=== PATIENT | male | born 1980 | race Caucasian/White ===

== ENCOUNTER 2020-09-28 06:58 | Emergency (ER) | payer SELFPAY ==
[2020-09-28] VITALS (8 sets, daily range): BP systolic 108–135; BP diastolic 54–89; PULSE 18–78; RESP 14–20; TEMP 36.3–36.5; O2SAT 96–100; BMI 22.0
--- NOTE | 2020-09-28 07:19 | ED_ITS ---
HPI - Male Genitourinary General: Chief complaint: Urogenital-Male Stated complaint: Back Pain on Right side Time Seen by Provider: 09/28/20 06:59 History of Present Illness: HPI Narrative: Patient is a 39-year-old male comes to the ED with right flank pain. Patient has a past medical history of kidney stones and BPH. Approximately 2-3 nights ago patient says he urinated and it was dark Coke color. Since dark-colored urine he has not had an episode of urine a dark but has had medium strontium darker straw urination since. He had some sharp right flank pain yesterday but it was brief and went away. At 4:30 this morning he developed some sharp right flank pain that has continued and he has decreased urine output today and he is only able to urinate a small amount out. he currently rates his pain an 8-9 out of 10. Associated symptoms: Reports hematuria; Deny dysuria, nausea or vomiting Review of Systems Const: Denies: fever(s), chills or fatigue Eyes: Denies: change in vision or eye discomfort ENMT: Denies: throat pain, odynophagia, nasal discharge or nasal congestion Card: Denies: chest pain, palpitations, edema, swelling of feet/ankles, dyspnea on exertion or orthopnea Resp: Denies: dyspnea, productive cough or non-productive cough GI: Denies: abdominal pain, nausea, vomiting, diarrhea, constipation or hematochezia : Reports: flank pain, difficulty urinating, oliguria and hematuria; Denies: dysuria Musc: Denies: neck pain, back pain or extremity swelling Skin/Breast: Denies: rash or new lesions Neuro: Denies: headache(s), numbness in extremities or weakness in extremities Physical Exam Const: COMMON NORMALS: patient oriented x3 and alert GENERAL APPEARANCE: cooperative and in distress (Patient is constantly moving around and uncomfortable due to pain during ex) HENMT: COMMON NORMALS: normocephalic HEAD & SCALP: normocephalic MOUTH: Normal oral and palatal mucosa present THROAT: posterior oropharynx normal and uvula midline Neck/C-Spine: COMMON NORMALS: supple GENERAL: Yes normal visual inspection Resp: COMMON NORMALS: normal respiratory effort, No retractions, No use of accessory muscles and clear to auscultation bilaterally AUSCULTATION: clear to auscultation bilaterally Cardio: COMMON NORMALS: regular rate, regular rhythm, S1 normal heart sound present, S2 normal heart sound present, No gallops present (Cardio), No clicks present (Cardio), No murmurs present (Cardio) and Peripheral pulses 2+ throughou t RATE: regular rate RHYTHM: regular rhythm HEART SOUNDS: S1 normal heart sound present and S2 normal heart sound present PERIPHERAL PULSES: Peripheral pulses 2+ throughout GI: COMMON NORMALS: Normal to inspection, nondistended, normoactive bowel sounds present, Soft to palpation and no masses PALPATION: Yes Soft to palpation and Yes Tenderness to palpation present (GI) Details: other (Right flank pain) : BLADDER/KIDNEY EXAM: Yes CVA tenderness on the right Extremity: COMMON NORMALS: normal to inspection Neuro: COMMON NORMALS: patient oriented x3 and moves all extremities SENSORIUM/ORIENTATION: Yes alert Skin: GENERAL SKIN EXAM: dry skin Course Reevaluation(s): Reevaluation #1: After patient was given IV Toradol he says his pain completely went away. Vital Signs: Vital signs: Vital Signs Temperature 97.6 F 09/28/20 09:27 Pulse Rate 18 L 09/28/20 09:27 Respiratory Rate 16 09/28/20 09:00 Blood Pressure 108/77 09/28/20 09:27 Pulse Oximetry 96 09/28/20 09:27 MDM - Male MDM Narrative: Medical decision making narrative: Patient is a 39-year-old male that comes to the ED with right flank pain. He has CVA tenderness upon exam. White blood cell count 17.5 progressive CBC and CMP was unremarkable. Urinalysis showed hematuria but no other signs of infection in the urine seen. CT kidney stone showed an approximately 3 mm obstructive stone in the UVJ. Patient was given IV Toradol, fluids and tamsulosin while here in the ED. He was sent home with a urine strainer and told to continue strain urine to catch stone. He was sent home with a prescription for tamsulosin and naproxen. I placed an order with case management for patient be referred to Dr. Wilde and I told him they will be contacting him in the next couple days to set up an appointment. Return to ED precautions given. Patient understood and agree with plan. Lab Data: Attestation: I reviewed the patient's lab results. Labs: Lab Results 09/28/20 09/28/20 09/28/20 Range/Units 07:25 07:25 08:35 WBC 17.5 H (4.0-10.0) 10^3/ uL RBC 5.24 (4.1-5.3) 10^6/u L Hgb 16.1 (11.7-16.6) g/dL Hct 48.1 (42.0-52.0) % MCV 91.8 (80-94) fL MCH 30.7 (28.0-34.0) pg MCHC 33.5 (30.0-36.0) g/dL RDW 12.2 (12.1-15.1) % Plt Count 263 (130-400) 10^3/c mm MPV 11.4 H (7.4-10.4) fL Neut % (Auto) 80.6 % Lymph % (Auto) 10.8 % Eaton % (Auto) 7.1 % Eos % (Auto) 0.6 % Baso % (Auto) 0.4 % Neut # (Auto) 14.15 H (1.8-7.7) 10^3/u L Lymph # (Auto) 1.9 (0.8-4.8) 10^3/u L Eaton # (Auto) 1.2 H (0.2-0.9) 10^3/u L Eos # (Auto) 0.1 (0.0-0.8) 10^3/u L Baso # (Auto) 0.1 (0.0-0.1) 10^3/u L Nucleated RBC % (a uto) 0 % Nucleated RBCs # 0.0 /100WBC Sodium 137 (136-145) mmol/L Potassium 4.1 (3.5-5.1) mmol/L Chloride 101 (98-107) mmol/L Carbon Dioxide 23 (22-29) mmol/L Anion Gap 17.1 (5-19) BUN 15 (6-20) mg/dL Creatinine 1.1 (0.7-1.2) mg/dL GFR Calculation 75.3 L (90-130) mL/min Glucose 123 H (65-115) mg/dL Calculated Osmolal ity 286 (285-295) mOsm/k g Calcium 9.6 (8.5-10.5) mg/dL Total Bilirubin 0.2 (0.15-1.2) mg/dL AST 108 H (0-40) U/L ALT 179 H (0-41) U/L Alkaline Phosphata se 118 (40-130) IU/L Total Protein 6.9 (6.6-8.7) g/dL Albumin 4.7 (3.5-5.2) g/dL Globulin 2.2 (1.3-4.6) g/dL Urine Color Yellow (Yellow) Urine Appearance Clear (CLEAR) Urine pH 5 (5-7) Ur Specific Gravit y 1.015 (1.005-1.030) Urine Protein Neg (Negative) Urine Glucose (UA) Norm (Normal) Urine Ketones Negative (Negative) Urine Blood 3+ H (Negative) Urine Nitrate Negative (Negative) Urine Bilirubin Neg (Negative) Urine Urobilinogen Norm (Negative) mg/dL Ur Leukocyte Erika ase Negative (Negative) Urine RBC >100 H (0-2) /hpf Urine WBC Rare (0-5) /hpf Ur Squamous Epith Cells Rare (0-5) /hpf Amorphous Sediment Not Reportable Urine Bacteria 1+ H (NONE) /hpf Imaging Data: CT Abd/Pel: Attestation: I personally reviewed and interpreted this imaging study as follows: Radiologist's impression: [address] [address] [address] Scan Report Signed Patient: Swetha Armando Unit #: [id number] : 1980 Acct#:[id number] Age/Sex: 39 / M ADM Date: 09/28/20 Loc: ER Room/Bed: Attending Dr: Ordering Provider/Ordering MD: Og Carey Date of Service: 09/28/20 Procedure(s): CT kidney stone 69[address] Accession Number(s): [id number] Report Number: [id number] PROCEDURE INFORMATION: Exam: CT Abdomen And Pelvis Without Contrast Exam date and time: 09/28/2020 7:24 AM Age: 39 years old Clinical indication: Pain; Other: Right flank; Additional info: Right flank pain TECHNIQUE: Imaging protocol: Computed tomography of the abdomen and pelvis without contrast. Radiation optimization: All CT scans at this facility use at least one of these dose optimization techniques: automated exposure control; mA and/or kV adjustment per patient size (includes targeted exams where dose is matched to clinical indication); or iterative reconstruction. COMPARISON: No relevant prior studies available. RADIATION DOSE METRICS: Total DLP (mGy-cm): 576.84 FINDINGS: Liver: Normal. No mass. Gallbladder and bile ducts: Normal. No calcified stones. No ductal dilation. Pancreas: Normal. No ductal dilation. Spleen: Normal. No splenomegaly. Adrenal glands: Normal. No mass. Kidneys and ureters: The right pelvic ureter is mildly dilated to the level of a 3.0 mm calculus at the ureterovesical junction. The right kidney shows moderate pelviectasis and mild-moderate abdominal ureterectasis with mild perinephric stranding. Right renal calculi (2), the largest in the lateral mid kidney measuring 1.9 mm. Left renal calculi (5), the largest in the anterolateral mid kidney measuring 2.4 mm. Stomach and bowel: Unremarkable. No obstruction. No mucosal thickening. Appendix: The vermiform appendix is normal. Intraperitoneal space: Unremarkable. No free air. No significant fluid collection. Vasculature: Unremarkable. No abdominal aortic aneurysm. Lymph nodes: No enlarged lymph nodes. Urinary bladder: The urinary bladder is partially decompressed and somewhat difficult to assess. Reproductive: Inguinal position right testis. Bones/joints: Unremarkable. No acute fracture. Soft tissues: A tiny paraumbilical hernia containing only abdominal fat is noted. CT/CT kidney stone [id number] IMPRESSION: 1. Right obstructive uropathy secondary to a right ureterovesical junction calculus. 2. Bilateral renal calyceal lithiasis. 3. Inguinal position right testis. Clinical correlation (retractile? undescended?) is recommended. Radiation Dose CTDIVOL = (mGy): DLP = 576.84 (mGy-cm) Dictated By: Jd Mayes MD Signed By: Jd Mayes MD Signed Date/Time: 09/28/20746 DD/ 4 Discharge Plan Discharge Patient Disposition: Home Clinical Impression: Kidney stone on right side Condition: Stable Prescriptions: New tamsulosin 0.4 mg capsule 0.4 mg PO DAILY Qty: 20 RF: 0 Naprosyn 500 mg tablet 500 mg PO BID PRN (Reason: pain) Qty: 14 RF: 0 Discharge Orders: Discharge ED (Routine); Ordered 09/28/20 Ordered By: Og Carey Discharge Diet: Regular Discharge Activity: Increase activity as tolerated Patient Instructions: Kidney Stones (ED) Activity Restrictions/Additional Instructions: Follow-up with medical provider as directed. Case management should be contacting you in the next several days to set up an appointment with Dr. Wilde the urologist. Strain urine to catch stone and drink lots of fluid to stay hydrated and help pass stone. Take medications as prescribed. You can take ibuprofen or Aleve for any pain or fevers. Return to the ER or your medical provider if condition worsens. Please read and understand discharge instructions. If any questions, please ask. Coding Level of Care Code ED [employer] Education [employer] for Tara Fwd Exam Comprehensive
[2020-09-28 07:29] LABS: Basophils # 0.1 10^3/uL (0.0-0.1); Basophils % 0.4 %; Eosinophils # 0.1 10^3/uL (0.0-0.8); Eosinophils % 0.6 %; Hematocrit 48.1 % (42.0-52.0); Hemoglobin 16.1 g/dL (11.7-16.6); Lymphocytes # 1.9 10^3/uL (0.8-4.8); Lymphocytes % 10.8 %; Mean Corpuscular HGB Conc 33.5 g/dL (30.0-36.0); Mean Corpuscular Hemoglobin 30.7 pg (28.0-34.0); Mean Corpuscular Volume 91.8 fL (80-94); Mean Platelet Volume 11.4 fL (7.4-10.4); Monocytes # 1.2 10^3/uL (0.2-0.9); Monocytes % 7.1 %; Neutrophils # 14.15 10^3/uL (1.8-7.7); Neutrophils % 80.6 %; Nucleated Red Blood Cells % 0 %; Platelet Count 263 10^3/cmm (130-400); Red Blood Count 5.24 10^6/uL (4.1-5.3); Red Cell Distribution Width 12.2 % (12.1-15.1); White Blood Count 17.5 10^3/uL (4.0-10.0)
[2020-09-28] MEDS: ondansetron 2 mg/ML SDV 2 mL 4 MG IVP (07:29)
[2020-09-28] MEDS: morphine 4 mg/mL SDV 1 mL IVP (07:30)
[2020-09-28] MEDS: sodium chloride 0.9% 1,000 ML 999 ML IV (07:30)
[2020-09-28 07:46] LABS: Alanine Aminotransferase 179 U/L (0-41); Albumin Level 4.7 g/dL (3.5-5.2); Alkaline Phosphatase 118 IU/L (40-130); Anion Gap 17.1 (5-19); Aspartate Amino Transferase 108 U/L (0-40); Blood Urea Nitrogen 15 mg/dL (6-20); Calcium 9.6 mg/dL (8.5-10.5); Carbon Dioxide 23 mmol/L (22-29); Chloride 101 mmol/L (98-107); Globulin 2.2 g/dL (1.3-4.6); Glomerular Filtration Rate 75.3 mL/min (90-130); Glucose 123 mg/dL (65-115); Osmolality Calculated 286 mOsm/kg (285-295); Potassium 4.1 mmol/L (3.5-5.1); Sodium 137 mmol/L (136-145); Total Bilirubin 0.2 mg/dL (0.15-1.2); Total Protein 6.9 g/dL (6.6-8.7)
[2020-09-28] MEDS: tamsulosin 0.4 mg Capsule PO (08:10)
[2020-09-28] MEDS: ketorolac 30 mg/mL INJ IVP (08:10)
--- NOTE | 2020-09-28 09:11 | DCPLANNER ---
resource manager had message to schedule a follow up appointment for patient with Dr. Wilde. resource manager called the office of Dr. Wilde, spoke with Catia, gave clinic patients information. resource manager was told that patients information would be printed and reviewed. Clinic will call patient with appointment information.
[2020-09-28 09:13] LABS: Bilirubin Urine Neg (Negative); Blood Urine 3+ (Negative); Glucose Urine UA Norm (Normal); Ketones Urine Negative (Negative); Leukocyte Esterase Urine Negative (Negative); Nitrate Urine Negative (Negative); Protein Urine Neg (Negative); Specific Gravity, Urine 1.015 (1.005-1.030); Urine Appearance Clear (CLEAR); Urine Color Yellow (Yellow); Urobilinogen Urine Norm (Negative); pH Urine 5 (5-7)
[2020-09-28 09:14] LABS: Bacteria Urine 1+ /hpf; RBC Urine >100 /hpf (0-2); Squamous Epithelial Cell Urine RARE /hpf (0-5); WBC Urine RARE /hpf (0-5)
[2020-09-28 09:15] LABS: Add Urine Culture? Yes
--- NOTE | 2020-09-29 11:43 | DCPLANNER ---
Patient has a follow up appointment scheduled for Wednesday, September 30, 2020 at 11:00 with . Clinic will call patient with appointment information.
--- NOTE | 2020-11-15 08:26 | DCPLANNER ---
Patient had a follow up appointment scheduled with Dr. Wilde - patient did not attend appointment.
== END 2020-09-28 09:33 | disposition home or self-care (01) ==
PROVIDERS: Emergency Provider Physician Assistant
DX: N20.0 Calculus of kidney (principal)
CPT/HCPCS: 12345; 74176; 80053; 81001; 85025; 87086; 96361; 96374; 96375; 99283; J1885; J2270; J2405; J7030